=== PATIENT | female | born 1940 | race Caucasian/White ===

== ENCOUNTER 2023-05-10 01:27 | Observation (INO) | payer MEDICARE, SELFPAY ==
[2023-05-09 23:26] VITALS: BMI 36.9
[2023-05-09 23:28] VITALS: BP 180/96
[2023-05-09 23:37] VITALS: BP 191/68
[2023-05-10] VITALS (8 sets, daily range): BP systolic 119–159; BP diastolic 61–127; BMI 36.2
[2023-05-10 00:02] LABS: % Basophils 0.8 % (0-2); % Eosinophils 1.9 % (0-6); % Immature Granulocytes 0.5 % (0-0.5); % Lymphocytes 18.8 % (20.5-51.1); % Monocytes 12.2 % (1.7-9.3); % Neutrophils 65.8 % (42.2-75.2); Absolute Basophils 0.1 10^3/uL (0-0.2); Absolute Eosinophils 0.3 10^3/uL (0-0.7); Absolute Immature Granulocytes 0.1 10^3/uL (0-0.05); Absolute Lymphocytes 2.6 10^3/uL (1.2-3.4); Absolute Monocytes 1.7 10^3/uL (0.1-0.6); Absolute Neutrophils 9.1 10^3/uL (1.4-6.5); Hematocrit 36.9 % (37.0-47.0); Hemoglobin 12.7 g/dL (12.0-16.0); Mean Corp Hgb Conc. 34.4 g/dL (33.0-37.0); Mean Corpuscular Volume 92.9 fL (81.0-99.0); Mean Platelet Volume 9.9 fL (7.4-10.4); Nucleated Red Blood Cells % 0 %; Platelet Count 257 10^3/uL (130-400); Red Blood Cell Count 3.97 10^6/uL (4.20-5.40); Red Cell Dist. Width 13.2 % (11.5-14.5); White Blood Cell Count 13.8 10^3/uL (4.8-10.8)
[2023-05-10] MEDS: NSS 500 IV (00:02)
--- NOTE | 2023-05-10 00:13 | ED.GENMED ---
History of Present Illness
General
Chief Complaint: Rectal Bleeding
Source: patient
Exam Limitations: none
Time Seen by Provider: 05/09/23 23:37
Nursing documentation reviewed up to this point in time: agreed with
Travel History
Have you had any contact with someone who has COVID-19?: No
Do you have any symptoms of coronavirus? Fever > 100 degrees, chills, cough, shortness of breath, sore throat, loss of taste or smell, muscle aches, or headache?: No
History of Present Illness
History of Present Illness:
82-year-old female with past medical history of hypertension pneumonia presenting to the emergency department today with concerns of rectal bleeding 3 episodes where she described as red blood and moderate volume. No abdominal pain chest pain
shortness of breath patient is not on blood thinners.
Past History
Past History
ED Past Medical History: HTN and Hypercholesterolemia
ED Past Surgical History: Cardiac (valve. aortic), Gynecological and Orthopedic
Review of Systems
Review of Systems
Allergies reviewed?: Yes
All Other Systems: ROS reviewed and negative except as documented in HPI and ROS
Phy Exam
Physical Exam
Physical Exam:
GENERAL: Alert , in no apparent distress
EYE: pupils equal and reactive
NECK: Supple, no significant adenopathy.
ENT: o/p clr, mmm.
CARDIAC: Regular rate and rhythm .
LUNGS: Clear breath sounds bilaterally, no acute respiratory distress, no wheezes/rales/rhonchi
ABDOMEN: Soft, without focal tenderness, no r/g, no cvat, rectal examination revealing red blood guaiac positive
NEUROLOGICAL: Alert and oriented, no focal neuro deficits
SKIN: Warm and dry, skin intact.
MUSCULOSKELETAL: No edema, well perfused.
PSYCH: Normal and appropriate interaction.
Course
Orders/Labs/Results
Orders:
Orders
05/09/23 23:39
Cardiac Monitoring- Treatment ONCE
IV Insert/Care/Rem.- Treatment PRN
O2 Therapy [RESP] Urgent
Titrate/Wean O2 to maintain O2 sat greater than (%): 93
Special Instructions: MAINTAIN CONTINOUS O2 SATS > OR = 93%
Pulse Ox/spot Check [RESP] Urgent
Quantity: 1
Special Instructions: ON ROOM AIR
05/09/23 23:54
Type+Screen Urgent
Complete Blood Count/With Diff Urgent
Comprehensive Metabolic Panel Urgent
PTT Urgent
Prothrombin Time Urgent
05/09/23 23:58
0.9% Sodium Chloride 500 ml [Nss] 500 ml IV BOLUS
Abnormal Lab Results
05/09/23
23:54
WBC 13.8 H 10^3/uL
(4.8-10.8)
RBC 3.97 L 10^6/uL
(4.20-5.40)
Hct 36.9 L %
(37.0-47.0)
MCH 32.0 H pg
(27.0-31.0)
Abs Immat Gran (auto) 0.1 H 10^3/uL
(0-0.05)
Absolute Neuts (auto) 9.1 H 10^3/uL
(1.4-6.5)
Absolute Monos (auto) 1.7 H 10^3/uL
(0.1-0.6)
Lymphocytes % 18.8 L %
(20.5-51.1)
Monocytes % 12.2 H %
(1.7-9.3)
Carbon Dioxide 21 L mmol/L
(22-30)
BUN 31 H mg/dl
(7-17)
05/09/23 23:54
05/09/23 23:54
Vital Signs
Initial and Last Documented VS:
Initial Vital Signs
Temp Pulse Resp BP Pulse Ox
97.8 F 104 24 180/96 96
03/26/24 23:28 05/09/23 23:28 05/09/23 23:28 05/09/23 23:28 05/09/23 23:28
Last Documented Vital Signs
Temp Pulse Resp BP Pulse Ox
97.8 F 104 24 180/96 98
05/09/23 23:28 05/09/23 23:28 05/09/23 23:28 05/09/23 23:28 05/09/23 23:34
MDM/Problems Addressed
MDM/Problems Addressed:
82-year-old female presenting to the emergency department today with concerns of 3 episodes of red blood per rectum prior to arrival described as moderate volume. No abdominal pain heart rate elevated upon arrival but blood pressure elevated.
White count of 13.8 hemoglobin 12.7. Rectal examination with red blood. No obvious hemorrhoids. Plan to admit for further monitoring overnight and GI assessment.
*Critical Care Note
Total Time (30-74mins, 75-104mins- exclusive of procedures): Not Applicable
ED Attending Note
-
Portions of this chart may have been created with voice recognition software.� Occasional wrong word or��sound alike� substitutions may have occurred due to the inherent limitations of voice recognition software.
Discharge Plan
Departure
Patient Disposition: Admit
Date of Disposition: 05/10/23
Time of Disposition: 00:43
Admit to: Med/Surg
Admit to doctor: Mike
Presentation/result/management discussed w/ accepting MD/DO: Hospitalist
Patient with high blood pressure during this ER visit?: No
Condition: Good
Covid-19: Not Applicable
Discharge Problem:
Acute GI bleeding
Prescriptions:
No Action
atorvastatin 40 MG tablet
80 mg PO DAILY
diltiazem HCl 120 MG capsule,extended release 24hr
240 mg PO DAILY
multivitamin Tablet
1 tab PO DAILY
aspirin 325 mg Tablet
325 mg PO DAILY Qty: 30 0RF
Rx Instructions:
Take daily x4 weeks for blood clot prevention; then resume Aspirin 81 mg daily.
acetaminophen 650 mg Tablet Extended Release
1,300 mg PO Q8H Qty: 60 0RF
Rx Instructions:
DO NOT exceed >4000 mg daily.
Alternative dosin mg every 4 hours while awake.
furosemide 20 MG tablet
20 mg PO DAILY Qty: 0 0RF
Rx Instructions:
HOLD IF systolic blood pressure <130 while on Oxycodone.
ascorbic acid (vitamin C) [Vitamin C] 500 mg Tablet
500 mg PO DAILY
zinc 10 mg Tablet
10 mg PO DAILY
cholecalciferol (vitamin D3) [Vitamin D3] 25 mcg (1,000 unit) Capsule
25 mcg PO DAILY
lisinopril 20 MG tablet
20 mg PO DAILY
Rx Instructions:
HOLD IF systolic blood pressure <130 while on Oxycodone.
Referrals:
Karina Akers CRNP [Family Provider] -
Interventions
Interventions:
*Risk Screen - Suicide Last Done: 05/09/23 23:28
*General Assessment Last Done: 05/09/23 23:34
*Neglect/Abuse Screening Last Done: 05/09/23 23:28
ED- Fall Risk Assessment Last Done: 05/09/23 23:34
*ED COVID-19 Vaccine History Last Done: 05/09/23 23:34
WO-Sevyls-Pmsmveyeiw Assessment Last Done: 05/09/23 23:34
ED- Cardiac Assessment Last Done: 05/09/23 23:34
ED- Pulmonary Assessment Last Done: 05/09/23 23:34
[2023-05-10 00:14] LABS: INR 1.11; PT 14.1 Sec (11.4-14.6)
[2023-05-10 00:15] LABS: ALT (SGPT) 24 U/L (0-35); AST (SGOT) 27 U/L (14-36); Albumin 4.2 g/dl (3.5-5.0); Alkaline Phosphatase 85 U/L (38-126); Blood Urea Nitrogen 31 mg/dl (7-17); Calcium 9.1 mg/dl (8.4-10.2); Carbon Dioxide 21 mmol/L (22-30); Chloride 107 mmol/L (98-107); Estimated Creatinine Clearance 59 ml/min; Glucose 98 mg/dl (70-99); Potassium 3.9 mmol/L (3.5-5.1); Sodium 139 mmol/L (135-145); Total Bilirubin 0.4 mg/dl (0.2-1.3); Total Protein 6.6 g/dl (6.3-8.2); eGFR > 60.00
--- NOTE | 2023-05-10 03:28 | DOWNTIME ---
There was a [employer] Client Perioperative Tech Downtime on 05/10/2023 from 0100 to 05/10/2023 at 0322. Downtime documentation of patient's care, including medication administrations, has been reconciled in the electronic record per guidelines. Refer to the
patient's paper chart under the miscellaneous tab to see printed paper medication records and downtime forms.
--- NOTE | 2023-05-10 03:32 | DOWNTIME ---
There was a [email or web address] Client Pet Adoption Counselor Downtime on 05/10/2023 from 0100 to 05/10/2023 at 0322. Downtime documentation of patient's care, including medication administrations, has been reconciled in the electronic record per guidelines. Refer to the
patient's paper chart under the miscellaneous tab to see printed paper medication records and downtime forms.
--- NOTE | 2023-05-10 04:14 | HPS.HSE ---
Family Physician
-
Family Physician: INES Sanabria
Chief Complaint
-
Rectal Bleeding
History of Present Illness
Patient is an 82y F with PMH significant for hypertension, hypothyroidism, aortic stenosis and prior TIA who presents to ED complaining of BRBPR. Patient states that she has been feeling well. Around 9PM this evening she had the urge to move
her bowels. She noted a very small amount of brown stool, but a larger amount of bright red blood. Patient states that she had two additional episodes at home of only blood and clots. She estimates that she may have passed about 1/2 cup of blood
in total. Patient denies any crampy abdominal pain, rectal pain. No lightheadedness, dizziness, dyspnea, etc.
Patient denies any prior history of BRBPR.
Patient does state that she previously developed hematemesis while on liraglutide. She stopped this medication and her symptoms resolved. This was over a year ago.
Patient notes that she has been taking semaglutide for the past 6 weeks or so. She took her last dose one week ago.
Medical History
Past Medical History
Past Medical History: Reports Other
Additional Past Medical History:
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
Hypertension
Hypothyroidism
Severe Aortic Stenosis
Non-Melanoma Skin Cancer
Obesity
Past Surgical History: Reports Other
Additional Past Surgical History:
SHAWN
Bilateral TKA
Bilateral Heel Surgery
TAVR
Skin Cancer Excisions
Social History
Tobacco: Non-smoker
Alcohol: Occasional (Rare)
Drug: None
Family History
Family History: Not pertinent
Allergies / Home Medications
Allergies reflects when Allergies were last updated in [facility].
Home Medications with original date entered in [employer]
Allergy/Medication List:
Allergies
Allergy/AdvReac Type Severity Reaction Status Date / Time
No Known Allergies Allergy Verified 05/09/23 23:29
Home Medications
atorvastatin 40 mg tablet 80 mg PO DAILY High cholesterol 09/17/20
diltiazem HCl 120 mg capsule,extended release 24 hr 240 mg PO DAILY Heart disease/condition 09/17/20
multivitamin 1 tab PO DAILY Supplement 08/30/22
acetaminophen 650 mg tablet,extended release 1,300 mg (2 x 650 mg) PO Q8H #60 tabs 09/22/22
aspirin 325 mg tablet 325 mg PO DAILY #30 tabs 09/22/22
furosemide 20 mg tablet 20 mg PO DAILY Fluid retention/Swelling #0 tabs 09/22/22
ascorbic acid (vitamin C) 500 mg tablet (Vitamin C) 500 mg PO DAILY 05/09/23
cholecalciferol (vitamin D3) 25 mcg (1,000 unit) capsule (Vitamin D3) 25 mcg PO DAILY 05/09/23
lisinopril 20 mg tablet 20 mg PO DAILY Blood pressure 05/09/23
zinc 10 mg tablet 10 mg PO DAILY 05/09/23
Review of Systems
-
History Source: Patient
A 12 point ROS was completed and negative except as noted: Yes
Constitutional: Denies Fever, Fatigue or Chills
Respiratory: Denies Cough or Trouble Breathing
Cardiac: Denies Chest Pain or Palpitations
Abdomen/GI: Reports Bloody Stools; Denies Abdominal Pain, Nausea, Vomiting or Diarrhea
: Denies Dysuria, Frequency or Flank Pain
Musculoskeletal: Denies Joint Pain or Edema
Neurological: Denies Dizzy or Headache
Psych: Denies Depression or Anxiety
Physical Exam
Vital Signs
Vital Signs
Temp Pulse Resp BP Pulse Ox
97.8 F 65 19 146/61 93
05/09/23 23:28 05/10/23 00:45 05/10/23 00:45 05/10/23 00:00 05/10/23 00:45
Physical Exam
General: Other (82y F in no acute distress.)
HEENT: Moist mucous membranes, PERRLA and Other (Excoriated lesion L cheek - recent topical chemo therapy.)
Respiratory: Clear; No Wheezes, Rales or Rhonchi
Cardiac: S1/S2, Regular Rhythm and Murmur (II/ STACIA)
GI: Soft, Non Tender, Non Distended, Normal Bowel Sounds and Other (grossly bloody stool)
Musculoskeletal: No Clubbing, No Cyanosis and No Edema
Neuro: AO x 3
Laboratory Results
-
05/09/23 23:54
05/09/23 23:54
Laboratory Results
PT 14.1 Sec (11.4-14.6) 05/09/23:54
INR 1.11 05/09/23:54
APTT 29.0 Sec (23.4-35.0) 05/09/23 23:54
Total Bilirubin 0.4 mg/dl (0.2-1.3) 05/09/23:54
AST 27 U/L (14-36) 05/09/23 23:54
ALT 24 U/L (0-35) 05/09/23 23:54
Alkaline Phosphatase 85 U/L (38-126) 05/09/23 23:54
Impression/Plan
-
A/P: Patient is an 82y F with PMH significant for HTN, TIA and severe who presents to ED complaining of BRBPR.
BRBPR / LGIB
- Admit for further evaluation and treatment.
- Patient is hemodynamically stable and Hgb is 12.7 g/dL on admission.
- Small (approx 30cc) amount of BRBPR since arrival in the ED.
- Monitor on tele.
- Follow for any further bleeding episodes.
- Consider CTA A/P if any significant bleeding, hypotension, etc.
- NPO, IVF support.
- GI evaluation for possible endoscopic examination.
- Follow H&H and consider transfusion if needed.
- Hold full-dose ASA for now.
ASCVD / Prior TIA
- Stable. No new neurologic deficits.
- Patient states that she was advised to take ASA 325mg secondary to her visual stroke / TIA.
- Notes from that encounter clearly state ASA 81mg daily.
- Seems likely that she increased her ASA intake following her knee replacement and neglected to change it back.
- Hold for now given active bleeding. Would resume at 81mg dose on discharge.
Severe Aortic Stenosis
Benign Hypertension
- Stable. Continue diltiazem with holding parameters for BP.
- Hold lisinopril and Lasix acutely.
Obesity due to excess calories
- Affects all aspects of care.
- Patient reports prior GI adverse effects related to liraglutide.
- Started taking semaglutide about 6 weeks ago.
- Will hold for now - might consider avoiding this class of medication entirely in the future.
- Encourage healthy diet and increased activity with goal of weight loss.
DVT Prophylaxis: SCDs
Code Status: Full
--- NOTE | 2023-05-10 07:27 | W.PN.HOSP.TC ---
Today's Communication/Plan
-
Continue to monitor hemoglobin. GI consulted. Possible scope.
Assessment / Plan
Assessment / Plan
Physical exam:
General: Well Developed, Well Nourished and No Apparent Distress
HEENT: Normocephalic, Atraumatic and Moist Mucous Membranes
Respiratory: Clear to Auscultation; Negative Wheezes, Rales or Rhonchi
Cardiac: Regular Rhythm and S1/S2
GI: Soft, Nontender and Nondistended
Musculoskeletal: No Clubbing, No Cyanosis and No Edema
Neuro: Awake, Alert and Oriented
Psych: Calm
A/P:
BRBPR / LGIB
- Admit for further evaluation and treatment.
- Patient is hemodynamically stable and Hgb is 12.7 g/dL on admission. Subsequently hemoglobin 10.5 this morning.
- Small (approx 30cc) amount of BRBPR since arrival in the ED.
- Monitor on tele.
- Follow for any further bleeding episodes.
- Consider CTA A/P if any significant bleeding, hypotension, etc.
- NPO, IVF support. GI okay for sips of clear today.
- GI evaluation for possible endoscopic examination and they are considering.
- Follow H&H and consider transfusion if needed.
- Hold full-dose ASA for now.
ASCVD / Prior TIA
- Stable. No new neurologic deficits.
- Patient states that she was advised to take ASA 325mg secondary to her visual stroke / TIA.
- Notes from that encounter clearly state ASA 81mg daily.
- Seems likely that she increased her ASA intake following her knee replacement and neglected to change it back.
- Hold for now given active bleeding. Would resume at 81mg dose on discharge.
Severe Aortic Stenosis
Benign Hypertension
- Stable. Continue diltiazem with holding parameters for BP.
- Hold lisinopril and Lasix acutely.
Obesity due to excess calories
- Affects all aspects of care.
- Patient reports prior GI adverse effects related to liraglutide.
- Started taking semaglutide about 6 weeks ago.
- Will hold for now - might consider avoiding this class of medication entirely in the future.
- Encourage healthy diet and increased activity with goal of weight loss.
DVT Prophylaxis: SCDs
Code Status: Full
Anticipated Discharge: 24 - 48 hours
Subjective/Interval History
-
Date of Service: May 10, 2023
Patient still having some brown stools mixed with blood but much darker in color. Denies abdominal pain. Denies nausea or vomiting.
Objective Data
-
Labs:
Laboratory Results
05/09/23
23:54
WBC 13.8 H
Hgb 12.7
Hct 36.9 L
Plt Count 257
PT 14.1
INR 1.11
APTT 29.0
Sodium 139
Potassium 3.9
Chloride 107
Carbon Dioxide 21 L
BUN 31 H
Creatinine 0.8
Glucose 98
Calcium 9.1
Total Bilirubin 0.4
AST 27
ALT 24
Alkaline Phosphatase 85
Vital Signs:
Vital Signs
Temp Pulse Resp BP Pulse Ox
98.2 F 78 18 150/72 98
05/10/23 02:30 05/10/23 02:30 05/10/23 02:30 05/10/23 02:30 05/10/23 02:30
I&O
05/09/23 05/10/23 05/11/23
06:59 06:59 06:59
Intake Total 300 / 300
Output Total 150 / 150
Balance 150 / 150
Review of Systems
-
All other systems: Reviewed and negative
[2023-05-10 07:49] LABS: Hematocrit 30.1 % (37.0-47.0); Hemoglobin 10.5 g/dL (12.0-16.0)
[2023-05-10 08:02] LABS: Blood Urea Nitrogen 25 mg/dl (7-17); Calcium 8.3 mg/dl (8.4-10.2); Carbon Dioxide 22 mmol/L (22-30); Chloride 109 mmol/L (98-107); Estimated Creatinine Clearance 67 ml/min; Glucose 91 mg/dl (70-99); Potassium 3.9 mmol/L (3.5-5.1); Sodium 137 mmol/L (135-145); eGFR > 60.00
[2023-05-10] MEDS: LR IV ×2 (08:37→16:48)
[2023-05-10] MEDS: NSS (PRESERVATIVE FREE) 10 ML IV (08:38)
[2023-05-10] MEDS: PROTONIX IV 40 MG IV (08:38)
[2023-05-10] MEDS: CARDIZEM CD 240 MG PO (08:40)
--- NOTE | 2023-05-10 09:15 | CON.GI ---
Addendum entered and electronically signed by Joaquín Coe MD 05/10/23 11:52:
I saw and examined the patient.
The PA's note was reviewed and I agree with the note.
Comment:
The pt is a 82 year old female with h/o HTN, hypothyroidism, hyperlipidemia, CAD, aortic stenosis s/p TAVR, TIA on ASA 325mg, and obesity who p/w painless hematochezia.
Impression / Rec:
1. Painless hematochezia - suspect diverticular hemorrhage. Started with a small BM followed by large bright red blood. Had few episodes at home, 3 more hematochezia since admission o/n. No prior history of GI bleed or anemia. Had colonoscopy
about 12 years ago which showed diverticulosis. H/o severe s/p TAVR in 2020. ASA 325 mg otherwise denies NSAID use, no abdo pain. This is likely LGIB from diverticular hemorrhage, ? AVM also in differential but given TAVR in 2020 unlikely. Pt
was agreeable for colonoscopy, CLD and prep today for colon tomorrow.
Original Note:
Consultation
-
Date/Time Consultation Requested: 05/10/23 @ 04:41
Date/Time Consultation Performed: 05/10/23 @ 09:30
Requesting Provider: Dr. Mckeon
Performing Provider: INES Joseph; Dr. Joaquín Coe
Reason for Consultation: LGIB
Medical History
Chief Complaint / HPI
Chief Complaint: rectal bleeding
History of Present Illness:
The pt is an 82 yo female with a PMH significant for hypertension, hypothyroidism, aortic stenosis, TIA, obesity, who presented to the emergency room with complaints of rectal bleeding. We are being asked to evaluate for possible lower GI bleed.
The patient reports that yesterday around 9 PM she developed the urge to have a bowel movement. She notes that when she went she had thought she had diarrhea, but when she looked in the toilet bowl she saw brown stool mixed with bright red blood.
She notes about a half a cupful of blood at that time. She did have subsequent episodes as well, leading to her presentation to the hospital. She denies any abdominal cramping or pain during these episodes. She denies any significant constipation
or diarrhea prior to the onset. She denies any straining or prolonged toileting. She denies any history of hemorrhoids in the past. She denies any dizziness, lightheadedness, shortness of breath, chest pain, or syncope. She denies any fevers or
chills. 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 She denies any upper GI symptoms such as nausea, vomiting, heartburn, or indigestion. She denies
any unintentional weight loss or loss of appetite. She notes that she is trying to lose weight intentionally and has been on semaglutide but was subsequently switched to liraglutide in which she developed profuse vomiting with blood which was about
6 months. She then stopped this and switch back to semaglutide about 6 weeks ago. She currently denies any hematemesis. She reports remote history of colonoscopy 10 to 12 years ago at [facility] in which she was told she had diverticulosis,
with no polyps. She denies any prior upper endoscopy. She reports a history of TAVR last year. She notes she has had 3 episodes of bleeding with red blood about a quarter of a cup to half a cup every few hours since admission yesterday evening.
She notes that the stool does appear darker in color. She denies any use of blood thinners aside from aspirin. She denies any use of NSAIDs regularly. She denies any family history of colon cancer. Routine labs on admission showed WBC 13.8,
hemoglobin 12.7, INR 1.11, sodium 139, potassium 3.9, BUN 31, creatinine 0.8, total bilirubin 0.4, AST 27, ALT 24, alk phos 85. Rectal exam per ER physician showing red blood. She was made n.p.o., started on IV fluids, admitted for further
evaluation by GI. Her aspirin was held on admission.
Past Medical History
Past Medical History: CVA (TIA), HTN, Hypothyroidism, Valvular Disease (Aortic stenosis) and Other (Obesity, skin CA (non-melanoma))
Past Surgical History: Cardiac (TAVR 2022), Gynecological (SHAWN), Orthopedic (left knee replacement, heel surgery) and Other (skin CA excision)
Social History
Tobacco: Non-Smoker
Alcohol: Other (infrequent)
Drug: None
Family History
Family History: Reviewed & Not Pertinent
Allergies / Home Medications
Allergy/AdvReac Type Severity Reaction Status Date / Time
No Known Allergies Allergy Verified 05/09/23 23:29
�Medication �Instructions �Recorded
atorvastatin 40 mg tablet 80 mg PO DAILY High cholesterol 09/17/20
diltiazem HCl 120 mg 240 mg PO DAILY Heart 09/17/20
capsule,extended release 24 hr disease/condition
multivitamin 1 tab PO DAILY Supplement 08/30/22
acetaminophen 650 mg 1,300 mg (2 x 650 mg) PO Q8H #60 09/22/22
tablet,extended release tabs
aspirin 325 mg tablet 325 mg PO DAILY #30 tabs 09/22/22
furosemide 20 mg tablet 20 mg PO DAILY Fluid 09/22/22
retention/Swelling #0 tabs
ascorbic acid (vitamin C) 500 mg 500 mg PO DAILY 05/09/23
tablet (Vitamin C)
cholecalciferol (vitamin D3) 25 25 mcg PO DAILY 05/09/23
mcg (1,000 unit) capsule (Vitamin
D3)
lisinopril 20 mg tablet 20 mg PO DAILY Blood pressure 05/09/23
zinc 10 mg tablet 10 mg PO DAILY 05/09/23
Review of Systems
-
History Source: Patient
Constitutional: Reports No Symptoms
EENT: Reports No Symptoms
Respiratory: Reports No Symptoms
Cardiac: Reports No Symptoms
Abdomen/GI: Reports Bloody Stools
: Reports No Symptoms
Musculoskeletal: Reports No Symptoms
Skin: Reports No Symptoms
Neurological: Reports No Symptoms
Vital Signs
Temp Pulse Resp BP Pulse Ox
97.8 F 67 16 162/67 99
05/10/23 07:25 05/10/23 08:40 05/10/23 07:25 05/10/23 08:40 05/10/23 07:25
Physical Exam
Exam
General: Well Developed, Well Nourished, No Apparent Distress and Comfortable
HEENT: Normocephalic, Anicteric and Atraumatic
Respiratory: Clear
Cardiac: S1/S2 and Regular Rhythm (regular rate/rhythm)
Breast: Deferred by me
GI: Soft, Non Tender, Non Distended and Normal Bowel Sounds
Rectal: Other (small amount of dark maroon colored stool on rectal exam, no obvious hemorrhoids or masses although limited due to squeezing)
Musculoskeletal: No Edema
Skin: Warm and Dry
Neuro: Awake, Alert and Oriented
Psych: Calm
Results
WBC 13.8 10^3/uL (4.8-10.8) H 05/09/23 23:54
Hgb 10.5 g/dL (12.0-16.0) L 05/10/23 07:36
Hct 30.1 % (37.0-47.0) L 05/10/23 07:36
MCV 92.9 fL (81.0-99.0) 05/09/23 23:54
Plt Count 257 10^3/uL (130-400) 05/09/23 23:54
Absolute Neuts (auto) 9.1 10^3/uL (1.4-6.5) H 05/09/23 23:54
PT 14.1 Sec (11.4-14.6) 05/09/23 23:54
INR 1.11 05/09/23 23:54
APTT 29.0 Sec (23.4-35.0) 05/09/23 23:54
Sodium 137 mmol/L (135-145) 05/10/23 07:40
Potassium 3.9 mmol/L (3.5-5.1) 05/10/23 07:40
Chloride 109 mmol/L (98-107) H 05/10/23 07:40
Carbon Dioxide 22 mmol/L (22-30) 05/10/23 07:40
BUN 25 mg/dl (7-17) H 05/10/23 07:40
Creatinine 0.7 mg/dL (0.6-1.0) 05/10/23 07:40
Calcium 8.3 mg/dl (8.4-10.2) L 05/10/23 07:40
Total Bilirubin 0.4 mg/dl (0.2-1.3) 05/09/23 23:54
AST 27 U/L (14-36) 05/09/23 23:54
ALT 24 U/L (0-35) 05/09/23 23:54
Alkaline Phosphatase 85 U/L (38-126) 05/09/23 23:54
Diagnostic Image Results:
None
Prior GI Procedures:
EGD: none
Colonoscopy: 10-12 years ago done out of [facility], +diverticulosis, no polyps per pt
Assessment / Plan
-
The pt is an 82 yo female with a PMH significant for hypertension, hypothyroidism, hyperlipidemia, CAD, aortic stenosis s/p TAVR, TIA on ASA 325mg, obesity, who presented to the emergency room with complaints of rectal bleeding. We are being asked
to evaluate for possible lower GI bleed. She presents with acute onset of painless rectal bleeding of bright red blood at home. No prior history of GI bleed or anemia. She reports colonoscopy 10 to 12 years ago showing diverticulosis without
polyps. She denies constipation prior to onset. Does have a history of TAVR and severe aortic stenosis. She is on chronic 325 mg of aspirin for history of TIA otherwise no NSAIDs or blood thinners. She continues to have 1/4 cup full of blood
every few hours, although is hemodynamically stable. Last episode several hours ago.
Problem list:
-Painless rectal bleeding
-Mild normocytic anemia likely secondary to acute blood loss
-Elevated BUN
-Reported history of diverticulosis
-History of aortic stenosis status post TAVR 2022
Other part medical history:
-Hypothyroidism
-Hypertension
-Obesity
-Hyperlipidemia
-CAD
Recommendations:
-Etiology of rectal bleeding possibly secondary to diverticular disease versus angiectasia's with history of aortic stenosis versus less likely brisk UGI versus other.
-At this time would continue to monitor for further bleeding. She reports less than half a capful size of blood passing every few hours which is getting less and darker. She is hemodynamically stable.
-Continue to trend H&H
-Would consider colonoscopy inpatient given her ongoing bleeding with drop of hemoglobin which she is agreeable to. Less likely to be a brisk upper bleed given stability, but with elevated BUN and chronic use of 325 mg of aspirin to consider this.
She denies any upper GI symptoms. To consider EGD as well, will review with Dr. Coe.
-If overt/significant bleeding to consider CTA imaging.
-Okay for sips of clears
-Avoid NSAID's
-Hold 325mg ASA for now
-Will follow
-
-
Thank you for consultation and allowing me to participate in the patient's care. Please call the heating and ventilation engineer GI physician during the after hours with any questions or concerns.
[2023-05-10] MEDS: LR 1000 IV (13:01)
[2023-05-10 13:49] LABS: Hematocrit 28.6 % (37.0-47.0); Hemoglobin 9.9 g/dL (12.0-16.0)
[2023-05-10] MEDS: NULYTELY SOLUTION 2 LITERS PO (16:56)
[2023-05-10 19:52] LABS: Hematocrit 29.2 % (37.0-47.0); Hemoglobin 10.1 g/dL (12.0-16.0)
[2023-05-11] VITALS (9 sets, daily range): BP systolic 15–165; BP diastolic 56–81
[2023-05-11 00:43] LABS: Hematocrit 27.2 % (37.0-47.0); Hemoglobin 9.2 g/dL (12.0-16.0)
[2023-05-11] MEDS: LR 1000 IV (03:55)
[2023-05-11] MEDS: NULYTELY SOLUTION 2 LITERS PO (05:13)
[2023-05-11 06:13] LABS: Hematocrit 32.3 % (37.0-47.0); Hemoglobin 10.9 g/dL (12.0-16.0); Mean Corp Hgb Conc. 33.7 g/dL (33.0-37.0); Mean Corpuscular Hgb 31.8 pg (27.0-31.0); Mean Corpuscular Volume 94.2 fL (81.0-99.0); Mean Platelet Volume 9.8 fL (7.4-10.4); Platelet Count 220 10^3/uL (130-400); Red Blood Cell Count 3.43 10^6/uL (4.20-5.40); Red Cell Dist. Width 13.4 % (11.5-14.5); White Blood Cell Count 9.3 10^3/uL (4.8-10.8)
[2023-05-11 06:39] LABS: Blood Urea Nitrogen 14 mg/dl (7-17); Calcium 8.8 mg/dl (8.4-10.2); Carbon Dioxide 24 mmol/L (22-30); Chloride 107 mmol/L (98-107); Estimated Creatinine Clearance 67 ml/min; Glucose 86 mg/dl (70-99); Potassium 4.2 mmol/L (3.5-5.1); Sodium 139 mmol/L (135-145); eGFR > 60.00
[2023-05-11] MEDS: NSS (PRESERVATIVE FREE) 10 ML IV (07:34)
[2023-05-11] MEDS: PROTONIX IV 40 MG IV (07:34)
[2023-05-11] MEDS: CARDIZEM CD 240 MG PO (07:34)
--- NOTE | 2023-05-11 08:28 | W.PN.HOSP.TC ---
Addendum entered and electronically signed by Jose Manuel Huerta MD 05/11/23 13:09:
Anemia, due to acute blood loss and hemodilution.
Original Note:
Today's Communication/Plan
-
Colonoscopy.
Assessment / Plan
Assessment / Plan
Physical exam:
General: Well Developed, Well Nourished and No Apparent Distress
HEENT: Normocephalic, Atraumatic and Moist Mucous Membranes
Respiratory: Clear to Auscultation; Negative Wheezes, Rales or Rhonchi
Cardiac: Regular Rhythm and S1/S2
GI: Soft, Nontender and Nondistended
Musculoskeletal: No Clubbing, No Cyanosis and No Edema
Neuro: Awake, Alert and Oriented
Psych: Calm
A/P:
BRBPR / LGIB, probably diverticular
-Status post colonoscopy-->No active blood, small polyp resected, diverticulosis in general.
-Will advance diet today.
-Plan to discharge later today or in a.m.
-Restart full-dose ASA and GI okay.
ASCVD / Prior TIA
- Stable. No new neurologic deficits.
- Patient states that she was advised to take ASA 325mg secondary to her visual stroke / TIA.
- Seems likely that she increased her ASA intake following her knee replacement and neglected to change it back.
- can resume full dose ASA
Severe Aortic Stenosis
Benign Hypertension
- Stable. Continue diltiazem with holding parameters for BP.
- Held lisinopril and Lasix acutely but resume.
Obesity due to excess calories
- Affects all aspects of care.
- Patient reports prior GI adverse effects related to liraglutide.
- Started taking semaglutide about 6 weeks ago.
- held for now -consideration to restart as outpatient
- Encourage healthy diet and increased activity with goal of weight loss.
DVT Prophylaxis: SCDs
Code Status: Full
Anticipated Discharge: Within 24 hours
Subjective/Interval History
-
Date of Service: May 11, 2023
Patient seen and examined. No new complaints.
Objective Data
-
Labs:
Laboratory Results
05/11/23 05/11/23
00:38 05:40
WBC 9.3
Hgb 9.2 L 10.9 L
Hct 27.2 L 32.3 L
Plt Count 220
Sodium 139
Potassium 4.2
Chloride 107
Carbon Dioxide 24
BUN 14
Creatinine 0.7
Glucose 86
Calcium 8.8
Vital Signs:
Vital Signs
Temp Pulse Resp BP Pulse Ox
97.5 F 68 18 165/66 98
05/11/23 08:20 05/11/23 08:20 05/11/23 08:20 05/11/23 08:20 05/11/23 08:20
I&O
05/10/23 05/11/23 05/12/23
06:59 06:59 06:59
Intake Total 300 / 300 2925 / 2925
Output Total 150 / 150
Balance 150 / 150 2925 / 2925
--- NOTE | 2023-05-11 11:13 | W.PN.UPDATE ---
Update Note
Progress Note Update
colonoscopy showed no blood, small polyp in cecum, resected, diverticulosis/hemorrhoids. reg diet, can d/c from GI standpoint, will s/o, call with questions.
--- NOTE | 2023-05-11 11:27 | CM ---
CM following re: d/c planning
Chart reviewed
CM met with patient at bedside; IA completed
Pt states she resides alone in a 2SH with no ALAN and has a 1st floor set up
[employer] patient reports independence at baseline
Pt has no previous SNF hx, does have a spc for use as needed, & has a recent hx of [facility] for home care
Pt confirms prescription coverage and rx's are filled at [facility] [address] [facility]
Pt PCP-[facility] and the patient sees INES Sanabria
No needs are anticipated once stable for d/c
CM will continue to follow patient progress and assist with any needs as indicated
PLAN; d/c home no needs anticipated
--- NOTE | 2023-05-11 12:54 | PN.CDI ---
CDI
- -
CDI:
Physician Documentation Request
Admit Date: 05/10/23 01:27
Dear Doctor Deanna,
Please review the following and provide your response in the progress notes.
Clinical Indicators:
- 05/09 PN 'BRBPR / LGIB'
- 05/10 Colonoscopy 'Hemorrhoids found on perianal exam...Internal hemorrhoids'
- per H&P 'larger amount of bright red blood. Patient states that she had two additional episodes at home of only blood and clots'
Laboratory Tests
05/09/23 05/10/23 05/10/23
23:54 07:36 13:41
Hgb 12.7 10.5 L 9.9 L
05/10/23 05/11/23 05/11/23
19:43 00:38 05:40
Hgb 10.1 L 9.2 L 10.9 L
Please clarify the appropriate diagnosis, if significant, that supports the above lab abnormalities and additional evaluation, monitoring and/or treatment rendered:
Anemia, due to acute blood loss and hemodilution
Anemia due to hemodilution only
Abnormal lab values, clinically insignificant
Other
Use of terms such as suspected, likely, concern for, or probable (associated with a specific diagnosis that is being evaluated, monitored, or treated as if it exists) are acceptable and can be coded in the inpatient setting, when documented at the
time of discharge.
Thank you,
Andrew Villeda RN
CDI Specialist
Please use your independent medical judgment in providing your response.
[2023-05-11] MEDS: LIPITOR 40 MG PO (13:18)
[2023-05-11] MEDS: VITAMIN D3 (cholecalciferol) 25 MCG PO (13:18)
[2023-05-11] MEDS: ASPIRIN 325 MG PO (13:18)
[2023-05-11] MEDS: LASIX 20 MG PO (13:19)
[2023-05-11] MEDS: ZESTRIL 20 MG PO (13:19)
[2023-05-12 06:12] LABS: Hemoglobin 9.5 g/dL (12.0-16.0); Mean Corp Hgb Conc. 32.8 g/dL (33.0-37.0); Mean Corpuscular Hgb 31.4 pg (27.0-31.0); Mean Corpuscular Volume 95.7 fL (81.0-99.0); Mean Platelet Volume 10.2 fL (7.4-10.4); Platelet Count 187 10^3/uL (130-400); Red Blood Cell Count 3.03 10^6/uL (4.20-5.40); Red Cell Dist. Width 13.3 % (11.5-14.5); White Blood Cell Count 8.3 10^3/uL (4.8-10.8)
[2023-05-12 07:41] VITALS: BP 154/69
--- NOTE | 2023-05-12 09:03 | W.PN.HOSP.TC ---
Today's Communication/Plan
-
Discharge planning today
Assessment / Plan
Assessment / Plan
Physical exam:
General: Well Developed, Well Nourished and No Apparent Distress
HEENT: Normocephalic, Atraumatic and Moist Mucous Membranes
Respiratory: Clear to Auscultation; Negative Wheezes, Rales or Rhonchi
Cardiac: Regular Rhythm and S1/S2
GI: Soft, Nontender and Nondistended
Musculoskeletal: No Clubbing, No Cyanosis and No Edema
Neuro: Awake, Alert and Oriented
Psych: Calm
A/P:
BRBPR / LGIB, probably diverticular
-Status post colonoscopy-->No active blood, small polyp resected, diverticulosis in general.
-Will advance diet today.
-Plan to discharge later today
-Restart full-dose ASA and GI okay.
ASCVD / Prior TIA
- Stable. No new neurologic deficits.
- Patient states that she was advised to take ASA 325mg secondary to her visual stroke / TIA.
- Seems likely that she increased her ASA intake following her knee replacement and neglected to change it back.
- can resume full dose ASA
Severe Aortic Stenosis
Benign Hypertension
- Stable. Continue diltiazem with holding parameters for BP.
- Held lisinopril and Lasix acutely but resume.
Obesity due to excess calories
- Affects all aspects of care.
- Patient reports prior GI adverse effects related to liraglutide.
- Started taking semaglutide about 6 weeks ago.
- held for now -consideration to restart as outpatient
- Encourage healthy diet and increased activity with goal of weight loss.
DVT Prophylaxis: SCDs
Code Status: Full
Anticipated Discharge: Today
Subjective/Interval History
-
Date of Service: May 12, 2023
No active bleeding. No new complaints
Objective Data
-
Labs:
Laboratory Results
05/12/23
05:30
WBC 8.3
Hgb 9.5 L
Hct 29.0 L
Plt Count 187
Vital Signs:
Vital Signs
Temp Pulse Resp BP Pulse Ox
98.6 F 77 20 154/69 97
05/12/23 07:41 05/12/23 07:41 05/12/23 07:41 05/12/23 07:41 05/12/23 07:41
I&O
05/11/23 05/12/23 05/13/23
06:59 06:59 06:59
Intake Total 2925 / 2925 1334 / 1334
Balance 2925 / 2925 1334 / 1334
[2023-05-12] MEDS: LASIX 20 MG PO (09:09)
[2023-05-12] MEDS: LIPITOR 40 MG PO (09:09)
[2023-05-12] MEDS: CARDIZEM CD 240 MG PO (09:09)
[2023-05-12] MEDS: ZESTRIL 20 MG PO (09:10)
[2023-05-12] MEDS: VITAMIN D3 (cholecalciferol) 25 MCG PO (09:10)
[2023-05-12] MEDS: PROTONIX IV 40 MG IV (09:10)
[2023-05-12] MEDS: NSS (PRESERVATIVE FREE) 10 ML IV (09:10)
[2023-05-12] MEDS: ASPIRIN 325 MG PO (09:10)
--- NOTE | 2023-05-12 12:22 | W.DCSUMMARY ---
Discharge Summary
Discharge Data
Date of Admission: 05/10/23
Date of Discharge: 05/12/23
-
Pending Results: No
Hospital Course
Patient 82 years old female with history hypertension, aortic stenosis with TAVR, hypothyroidism, TIA, obesity, presented to the hospital with rectal bleeding. GI consulted. GI took her for colonoscopy on 05/10 and found hemorrhoid, no blood in the
colon, 70-mm polyp in the cecum removed with a cold snare, and diverticulosis. GI recommended to restart her outpatient antiplatelet. She is quite certain that she is supposed to be taking full dose of aspirin rather than 81 mg but she will
discuss with her PCP. She resumed aspirin in the hospital and hemoglobin with a mild drift with IVF but overall remained stable. No further signs of bleeding. GI cleared her for discharge. There were some concerns about her weight loss
medications but she will discuss with her outpatient provider if to continue or not as outpatient. Otherwise, patient is hemodynamically stable and very eager to go home today. She will be discharged in stable condition today.
Discharge duration: 34 minutes
Discharge Plan
-
Patient Disposition: Home (Routine Discharge)
Discharge Diagnosis/Procedures: Acute gastrointestinal bleed likely related to diverticular bleed. History of transient ischemic attack. History of severe aortic stenosis.
Condition: Good
Diet: Low Cholesterol
Activity: As tolerated
Driving Restrictions: As prior to admission
Blood Work: Please PCP to order CBC, BMP within 1 week
Referrals:
Joaquín Coe MD [Active] - in one month
Karina Akers CRNP [Family Provider] - in less than 1 week
Prescriptions:
Continued
atorvastatin 40 MG tablet
40 mg PO DAILY
multivitamin Tablet
1 tab PO DAILY
furosemide 20 MG tablet
20 mg PO DAILY Qty: 0 0RF
Rx Instructions:
HOLD IF systolic blood pressure <130 while on Oxycodone.
ascorbic acid (vitamin C) [Vitamin C] 500 mg Tablet
500 mg PO DAILY
zinc 10 mg Tablet
10 mg PO DAILY
cholecalciferol (vitamin D3) [Vitamin D3] 25 mcg (1,000 unit) Capsule
25 mcg PO DAILY
lisinopril 20 MG tablet
20 mg PO DAILY
Rx Instructions:
HOLD IF systolic blood pressure <130 while on Oxycodone.
aspirin 325 mg tablet
325 mg PO DAILY
Rx Instructions:
Take daily x4 weeks for blood clot prevention; then resume Aspirin 81 mg daily.
acetaminophen 650 mg tablet extended release
1,300 mg PO Q8H
Rx Instructions:
DO NOT exceed >4000 mg daily.
Alternative dosin mg every 4 hours while awake.
diltiazem HCl 240 mg capsule,extended release 24hr
240 mg PO DAILY
semaglutide (weight loss) 0.5 mg/0.5 mL Pen Injector
0.5 mg SC TU
Discharge Orders:
Discharge Patient (As Directed); Ordered 05/12/23
Ordered By: Jose Manuel Huerta
Discharge Date and Time
Discharge Date/Time: 05/12/23 12:41
Print Language: LAO
== END 2023-05-12 12:41 | disposition home or self-care (01) ==
LOC: 4 EAST ACU 01:27
PROVIDERS: ADMITTING PHYSICIAN Hospitalist; ATTENDING PHYSICIAN Hospitalist; CONSULT PHYSICIAN Internal Medicine Gastroenterology; EMERGENCY PHYSICIAN Student in an Organized Health Care Education/Training Program; FAMILY PHYSICIAN Nurse Practitioner
DX: K92.1 Melena (principal); I10 Essential (primary) hypertension; E78.00 Pure hypercholesterolemia, unspecified; K64.0 First degree hemorrhoids; K57.30 Diverticulosis of large intestine without perforation or abscess without bleeding; D12.0 Benign neoplasm of cecum; D62 Acute posthemorrhagic anemia; I35.0 Nonrheumatic aortic (valve) stenosis; E66.09 Other obesity due to excess calories; E03.9 Hypothyroidism, unspecified; I25.10 Atherosclerotic heart disease of native coronary artery without angina pectoris; Z96.653 Presence of artificial knee joint, bilateral; Z68.36 Body mass index [BMI] 36.0-36.9, adult; Z85.828 Personal history of other malignant neoplasm of skin; Z95.2 Presence of prosthetic heart valve; Z90.710 Acquired absence of both cervix and uterus; Z87.01 Personal history of pneumonia (recurrent); Z79.82 Long term (current) use of aspirin; Z86.73 Personal history of transient ischemic attack (TIA), and cerebral infarction without residual deficits
CPT/HCPCS: 45385; 88305; 80048; 80053; 85014; 85018; 85025; 85027; 85610; 85730; 86850; 86900; 86901; 96360; 99285; G0378

== ENCOUNTER 2023-05-15 09:58 | Emergency (ER) | payer MEDICARE, SELFPAY ==
[2023-05-15 10:10] VITALS: BP 148/78
[2023-05-15 10:31] LABS: % Basophils 0.9 % (0-2); % Eosinophils 2.4 % (0-6); % Immature Granulocytes 0.9 % (0-0.5); % Lymphocytes 12.2 % (20.5-51.1); % Monocytes 11.8 % (1.7-9.3); % Neutrophils 71.8 % (42.2-75.2); Absolute Basophils 0.1 10^3/uL (0-0.2); Absolute Eosinophils 0.2 10^3/uL (0-0.7); Absolute Immature Granulocytes 0.1 10^3/uL (0-0.05); Absolute Lymphocytes 1.1 10^3/uL (1.2-3.4); Absolute Monocytes 1.1 10^3/uL (0.1-0.6); Absolute Neutrophils 6.5 10^3/uL (1.4-6.5); Hematocrit 31.3 % (37.0-47.0); Mean Corp Hgb Conc. 35.1 g/dL (33.0-37.0); Mean Corpuscular Hgb 32.2 pg (27.0-31.0); Mean Corpuscular Volume 91.5 fL (81.0-99.0); Mean Platelet Volume 9.5 fL (7.4-10.4); Nucleated Red Blood Cells % 0 %; Platelet Count 280 10^3/uL (130-400); Red Blood Cell Count 3.42 10^6/uL (4.20-5.40); Red Cell Dist. Width 13.7 % (11.5-14.5); White Blood Cell Count 9.1 10^3/uL (4.8-10.8)
[2023-05-15 10:52] LABS: ALT (SGPT) 27 U/L (0-35); AST (SGOT) 29 U/L (14-36); Albumin 4.1 g/dl (3.5-5.0); Alkaline Phosphatase 75 U/L (38-126); Blood Urea Nitrogen 19 mg/dl (7-17); Carbon Dioxide 23 mmol/L (22-30); Chloride 108 mmol/L (98-107); Glucose 95 mg/dl (70-99); Sodium 137 mmol/L (135-145); Total Bilirubin 0.5 mg/dl (0.2-1.3); Total Protein 6.4 g/dl (6.3-8.2); eGFR > 60.00
--- NOTE | 2023-05-15 11:58 | ED.GENMED ---
History of Present Illness
<Alison Junior PA-C - Last Filed: 05/15/23 13:28>
General
Chief Complaint: Rectal Bleeding
Source: patient
Exam Limitations: none
Time Seen by Provider: 05/15/23 11:37
Nursing documentation reviewed up to this point in time: agreed with
Travel History
Have you had any contact with someone who has COVID-19?: No
Do you have any symptoms of coronavirus? Fever > 100 degrees, chills, cough, shortness of breath, sore throat, loss of taste or smell, muscle aches, or headache?: No
History of Present Illness
History of Present Illness:
Patient is an 82-year-old female with history hypertension, diverticulosis presenting for evaluation of rectal bleeding. Patient states that she felt the urge to have a bowel movement this morning around 7:40 AM, went to the bathroom where she had
a bowel movement and noticed blood in the toilet. Bleeding was painless. She does report mild fatigue and dyspnea on exertion since discharge from hospital on Monday. She reports no abdominal pain, nausea, vomiting. She denies any chest pain,
shortness of breath, lightheadedness, fainting. She spoke with Dr. Coe's office this morning after episode of bleeding where they recommended that she be evaluated the emergency department. She has had normal bowel movements both Monday and
Monday.
Of note�patient was recently admitted to the hospital last week due to rectal bleeding. She had a colonoscopy performed and bleeding was attributed to diverticular and internal hemorrhoidal bleeding.
Patient does take a full-strength aspirin.
Patient is concerned because she has a trip planned to [place] that she is nicely for on Monday.
Past History
<Alison Junior PA-C - Last Filed: 05/15/23 13:28>
Past History
ED Past Medical History: HTN and Hypercholesterolemia
ED Past Surgical History: Cardiac (valve. aortic), Gynecological and Orthopedic
Phy Exam
<Alison Junior PA-C - Last Filed: 05/15/23 13:28>
Physical Exam
Physical Exam:
General: In no apparent distress, nontoxic appearing
Vitals: Mildly hypertensive, otherwise vital signs stable; afebrile
HEENT: Atraumatic, normocephalic; pupils equal round reactive light bilaterally, extraocular muscles intact, no blood in posterior pharynx, protecting airway
Neck: appears supple
CV: Regular rate and rhythm, heart sounds normal, no evidence of cyanosis
Resp: No evidence of respiratory distress, lungs clear bilaterally
Abd: Soft, nontender in all 4 quadrants, no CVA tenderness
Rectal: Nontender, no obvious blood or stool in vault
Extremities: No evidence of cyanosis or edema
Neuro: alert and oriented; grossly intact
Psych: Normal affect
Skin: Intact, no rashes
Course
<Alison Junior PA-C - Last Filed: 05/15/23 13:28>
Orders/Labs/Results
Orders:
Orders
05/15/23 10:25
Complete Blood Count/With Diff Urgent
Comprehensive Metabolic Panel Urgent
05/15/23 12:42
Orthostatic VS- Treatment ONCE
Abnormal Lab Results
05/15/23
10:25
RBC 3.42 L 10^6/uL
(4.20-5.40)
Hgb 11.0 L g/dL
(12.0-16.0)
Hct 31.3 L %
(37.0-47.0)
MCH 32.2 H pg
(27.0-31.0)
Abs Immat Gran (auto) 0.1 H 10^3/uL
(0-0.05)
Absolute Lymphs (auto) 1.1 L 10^3/uL
(1.2-3.4)
Absolute Monos (auto) 1.1 H 10^3/uL
(0.1-0.6)
Immature Gran % 0.9 H %
(0-0.5)
Lymphocytes % 12.2 L %
(20.5-51.1)
Monocytes % 11.8 H %
(1.7-9.3)
Chloride 108 H mmol/L
(98-107)
BUN 19 H mg/dl
(7-17)
05/15/23 10:25
05/15/23 10:25
Vital Signs
Initial and Last Documented VS:
Initial Vital Signs
Temp Pulse Resp BP Pulse Ox
98.5 F 87 18 148/78 99
05/15/23 10:10 05/15/23 10:10 05/15/23 10:10 05/15/23 10:10 05/15/23 10:10
Last Documented Vital Signs
Temp Pulse Resp BP Pulse Ox
98.5 F 87 18 148/78 99
05/15/23 10:10 05/15/23 10:10 05/15/23 10:10 05/15/23 10:10 05/15/23 10:10
<Mark Beckford MD - Last Filed: 05/15/23 12:42>
Orders/Labs/Results
Orders:
Orders
05/15/23 10:25
Complete Blood Count/With Diff Urgent
Comprehensive Metabolic Panel Urgent
05/15/23 12:42
Orthostatic VS- Treatment ONCE
Abnormal Lab Results
05/15/23
10:25
RBC 3.42 L 10^6/uL
(4.20-5.40)
Hgb 11.0 L g/dL
(12.0-16.0)
Hct 31.3 L %
(37.0-47.0)
MCH 32.2 H pg
(27.0-31.0)
Abs Immat Gran (auto) 0.1 H 10^3/uL
(0-0.05)
Absolute Lymphs (auto) 1.1 L 10^3/uL
(1.2-3.4)
Absolute Monos (auto) 1.1 H 10^3/uL
(0.1-0.6)
Immature Gran % 0.9 H %
(0-0.5)
Lymphocytes % 12.2 L %
(20.5-51.1)
Monocytes % 11.8 H %
(1.7-9.3)
Chloride 108 H mmol/L
(98-107)
BUN 19 H mg/dl
(7-17)
05/15/23 10:25
05/15/23 10:25
Vital Signs
Initial and Last Documented VS:
Initial Vital Signs
Temp Pulse Resp BP Pulse Ox
98.5 F 87 18 148/78 99
05/15/23 10:10 05/15/23 10:10 05/15/23 10:10 05/15/23 10:10 05/15/23 10:10
Last Documented Vital Signs
Temp Pulse Resp BP Pulse Ox
98.5 F 87 18 148/78 99
05/15/23 10:10 05/15/23 10:10 05/15/23 10:10 05/15/23 10:10 05/15/23 10:10
<Alison Junior PA-C - Last Filed: 05/15/23 13:28>
MDM/Problems Addressed
Differential Diagnosis Includes:
Diverticular bleed, bleeding from internal/hemorrhoids, anal fissure, mass, AVM,
MDM/Problems Addressed:
Patient is an 82-year-old female with history hypertension, diverticulosis, known hemorrhoids presenting for evaluation of rectal bleeding this morning. Recently discharged from hospital 3 days ago after 3-day stay for evaluation of similar rectal
bleeding. Colonoscopy was performed which showed presence of diverticulosis and internal hemorrhoids. Patient reports mild fatigue and dyspnea on exertion, otherwise asymptomatic. Patient is hemodynamically stable on arrival. Physical exam as
documented above. Abdomen is soft and nontender. Rectal exam shows no obvious blood or stool in vault, but is Hemoccult positive. No evidence of active hemorrhage. Labs obtained in triage show mild anemia with hemoglobin of 11 but in comparison
to hemoglobin on discharge 3 days ago it has increased from 9.5. Otherwise no clinically significant abnormalities on labs. Discussed with GI provider on-call, Dr. Hayes for disposition recommendation. They recommend discharge with Anusol
suppositories for the next 7 days and return if any rebleed.
Orthostatic vital signs noted. Patient is asymptomatic and denies any lightheadedness/dizziness at this time.
Discussed with patient. She is comfortable with discharge and will monitor symptoms closely. Return precautions discussed at length. She is planning on leaving for international trip this monitor symptoms and adjust plans as
necessary. All questions answered.
Chronic conditions affecting care:
Hypertension, diverticulosis, internal hemorrhoids
Acute Exacerbation and/or Progression of Chronic Illness:
Rectal bleeding
<Alison Junior PA-C - Last Filed: 05/15/23 13:28>
*Pulse Oximetry
Patient hypoxic: no
*Seam Feller Interpretation
Rate: Seam Feller- N/A
*Critical Care Note
Total Time (30-74mins, 75-104mins- exclusive of procedures): Not Applicable
Data Reviewed
Review of Other/Old Records Reveals: Labs, Records, Operative Reports, Progress Notes and Discharge Summary
Source: patient and previous hospital records
<Alison Junior PA-C - Last Filed: 05/15/23 13:28>
Patient Management
Discussion with other providers: Straightener Hand (Gastroenterology- Dr. Hayes)
ED Attending Note
<lAison Junior PA-C - Last Filed: 05/15/23 13:28>
-
Portions of this chart may have been created with voice recognition software.� Occasional wrong word or��sound alike� substitutions may have occurred due to the inherent limitations of voice recognition software.
<Mark Beckford MD - Last Filed: 05/15/23 12:42>
ED Attending Note
Patient seen and examined by attending physician: Yes
ED Attending Note:
Patient presents to ED secondary to one bloody bowel movement at home this morning. Patient was discharged in the hospital last week after being admitted for GI bleed. Patient received colonoscopy during that admission and was told that her
bleeding may be secondary to hemorrhoids as well as diverticulosis. Since being discharged home, patient has had normal bowel movements. Patient takes aspirin daily. Denies fever. Denies abdominal pain. Denies nausea vomiting. Denies
dizziness. Denies weakness.
Physical Exam
General: no apparent distress, not acutely ill. afebrile
Head: nc/at. eomi
Neck: supple. no meningeal signs.
Heart: s1/s2 regular rate and rhythm, no murmur. equal radial pulses.
Lungs: no acute respiratory distress. clear bilaterally
Abdomen: normal bowel sounds. not tender.
Neuro: alert and oriented. no focal neurological deficits
Skin: no rash
Psychiatric: well kept. interactive and cooperative
Extremities: no edema. no calf tenderness.
H/H noted, stable compared to last week.
Discussed with GI () - recommends Anusol suppository x 1 week with recommendation to return with worsening symptoms, ie fever/pain/dizziness/sob
Discharge Plan
Departure
Patient Disposition: Home (Routine Discharge)
Date of Disposition: 05/15/23
Time of Disposition: 13:25
Patient with high blood pressure during this ER visit?: Yes
Condition: Good
Covid-19: Not Applicable
Discharge Problem:
Rectal bleeding
Instructions: Hemorrhoids (DC), Diverticulosis (DC), Bloody Stools, Adult (DC)
Prescriptions:
New
hydrocortisone acetate [Anusol-HC] 25 mg suppository
25 mg [place] DAILY 7 Days Qty: 12 0RF
No Action
atorvastatin 40 MG tablet
40 mg PO DAILY
multivitamin Tablet
1 tab PO DAILY
furosemide 20 MG tablet
20 mg PO DAILY Qty: 0 0RF
Rx Instructions:
HOLD IF systolic blood pressure <130 while on Oxycodone.
ascorbic acid (vitamin C) [Vitamin C] 500 mg Tablet
500 mg PO DAILY
zinc 10 mg Tablet
10 mg PO DAILY
cholecalciferol (vitamin D3) [Vitamin D3] 25 mcg (1,000 unit) Capsule
25 mcg PO DAILY
lisinopril 20 MG tablet
20 mg PO DAILY
Rx Instructions:
HOLD IF systolic blood pressure <130 while on Oxycodone.
aspirin 325 mg tablet
325 mg PO DAILY
Rx Instructions:
Take daily x4 weeks for blood clot prevention; then resume Aspirin 81 mg daily.
acetaminophen 650 mg tablet extended release
1,300 mg PO Q8H
Rx Instructions:
DO NOT exceed >4000 mg daily.
Alternative dosin mg every 4 hours while awake.
diltiazem HCl 240 mg capsule,extended release 24hr
240 mg PO DAILY
semaglutide (weight loss) 0.5 mg/0.5 mL Pen Injector
0.5 mg SC TU
Referrals:
Joaquín Coe MD [Active] - As needed
Karina Akers CRNP [Family Provider] -
Activity Restrictions/Additional Instructions:
- Return to the emergency department with any chest pain, shortness of breath, lightheadedness/dizziness, persistent bleeding, severe abdominal pain, worsening in current symptoms, or any other concerns
-A prescription has been sent to your pharmacy for suppositories. You should use this for the next 7 days. If you notice any persistent bleeding�you should come back to the emergency department
-It is important to stay well-hydrated
-Follow-up with GI as needed.
Interventions
Interventions:
*Risk Screen - Suicide Last Done: 05/15/23 13:27
*General Assessment Last Done: 05/15/23 13:27
*Neglect/Abuse Screening Last Done: 05/15/23 13:27
ED- Fall Risk Assessment Last Done: 05/15/23 13:27
*ED COVID-19 Vaccine History Last Done: 05/15/23 10:15
HD-Hnwrjv-Gpqsidhjpp Assessment Last Done: 05/15/23 13:26
ED- Cardiac Assessment Last Done: 05/15/23 13:26
ED- Pulmonary Assessment Last Done: 05/15/23 13:26
Discharge Date and Time
Print Language: PASHTO
[2023-05-15 13:15] VITALS: BP 136/69; BP 150/68; BP 159/67; PULSE 60; PULSE 69; PULSE 78
[2023-05-15 13:33] VITALS: BP 122/74
== END 2023-05-15 13:36 | disposition home or self-care (01) ==
LOC: EMR 09:58
PROVIDERS: EMERGENCY PHYSICIAN Emergency Medicine; FAMILY PHYSICIAN Nurse Practitioner
DX: K62.5 Hemorrhage of anus and rectum (principal); I10 Essential (primary) hypertension; K57.30 Diverticulosis of large intestine without perforation or abscess without bleeding
CPT/HCPCS: 99283; 80053; 85025

== ENCOUNTER → 2023-09-04 10:18 | Outpatient (REF) | payer MEDICARE, SELFPAY | LOC: RCS 10:18 | PROVIDERS: ATTENDING PHYSICIAN Internal Medicine Cardiovascular Disease; FAMILY PHYSICIAN Nurse Practitioner; REFERRING PHYSICIAN Internal Medicine Cardiovascular Disease | DX: Z95.2 Presence of prosthetic heart valve (principal) | CPT/HCPCS: 93306 ==

== ENCOUNTER → 2023-11-21 14:13 | Outpatient (REF) | payer MEDICARE, SELFPAY | LOC: HWWDC 14:13 | PROVIDERS: ATTENDING PHYSICIAN Nurse Practitioner; PRIMARYCARE PHYSICIAN Family Medicine | DX: Z12.31 Encounter for screening mammogram for malignant neoplasm of breast (principal) | CPT/HCPCS: 77063; 77067 ==

== ENCOUNTER → 2024-01-18 08:13 | Outpatient (REF) | payer MEDICARE, SELFPAY | LOC: HWRCS 08:13 | PROVIDERS: ATTENDING PHYSICIAN Nurse Practitioner | DX: Z95.2 Presence of prosthetic heart valve (principal); R06.02 Shortness of breath | CPT/HCPCS: 93306 ==

== ENCOUNTER → 2024-04-10 06:53 | Outpatient (REF) | payer MEDICARE, SELFPAY | LOC: RAD 06:53 | PROVIDERS: REFERRING PHYSICIAN Internal Medicine Cardiovascular Disease | DX: R60.0 Localized edema (principal) | CPT/HCPCS: 93970 ==

== ENCOUNTER → 2024-12-10 14:35 | Outpatient (REF) | payer MEDICARE, SELFPAY | LOC: RCS 14:35 | PROVIDERS: REFERRING PHYSICIAN Internal Medicine Cardiovascular Disease | DX: I35.0 Nonrheumatic aortic (valve) stenosis (principal); Z95.2 Presence of prosthetic heart valve; R06.09 Other forms of dyspnea | CPT/HCPCS: 93306 ==

== ENCOUNTER → 2025-01-10 08:35 | Outpatient (REF) | payer MEDICARE, SELFPAY | LOC: HWWDC 08:35 | DX: Z78.0 Asymptomatic menopausal state (principal) | CPT/HCPCS: 77063; 77067 ==

== ENCOUNTER → 2025-01-14 11:05 | Outpatient (REF) | payer MEDICARE, SELFPAY | LOC: HWRCS 11:05 | PROVIDERS: ATTENDING PHYSICIAN Nurse Practitioner | DX: R06.09 Other forms of dyspnea (principal) | CPT/HCPCS: 78452; 93017; A9500; J2785 ==